=== PATIENT | female | born 1960 | race Two or more races ===

== ENCOUNTER 2017-07-09 11:54 | Emergency (ER) | payer MEDICAID ==
[~2017-07-09] VITALS: Ht 157.5 cm; Wt 90.0 kg
[2017-07-09] MEDS ORDERED: LEVO25TA7 PO (11:58)
[2017-07-09] MEDS ORDERED: FAMOTIDINE 20MG/2ML VIAL IV STA (15:02)
[2017-07-09] MEDS ORDERED: MAGNESIUM/ALUMINUM HYDROXIDE/SIMETHICONE 30ML UDC PO STA (15:02)
[2017-07-09] MEDS ORDERED: KETOROLAC 30MG/ML VIAL IV STA (15:02)
[2017-07-09] MEDS ORDERED: SODIUM CHLORIDE 0.9% 1,000 ML IV ONE (15:02)
[2017-07-09] MEDS ORDERED: ONDANSETRON HCL 4MG/2ML VIAL IV STA (15:02)
[2017-07-09 15:49] LABS: PROTHROMBIN TIME 10.5 sec (9.4-11.6)
[2017-07-09 15:54] LABS: CARBON DIOXIDE 30 mEq/L (21-32); CHLORIDE 103 mEq/L (98-107)
[2017-07-09 15:57] LABS: BASOPHILS % 0.2 % (0.0-2.0); EOSINOPHILS % 0.2 % (0.0-5.0); HEMATOCRIT. 42.8 % (36.0-48.0); HEMOGLOBIN. 14.2 g/dL (12.0-16.0); LYMPHOCYTES % 20.4 % (20.0-50.0); MEAN CORPUSCULAR HEMOGLOBIN 28.5 pg (28.0-32.0); MEAN PLATELET VOLUME 9.1 fl (7.4-10.4); MONOCYTES % 5.1 % (2.0-8.0); NEUTROPHILS % 74.1 % (40.0-76.0); PLATELET 253 x1000/uL (130-400); RED BLOOD CELL COUNT 4.97 mill/uL (4.2-5.4); RED CELL DISTRIBUTION WIDTH 13.9 % (11.6-14.6)
[2017-07-09] MEDS ORDERED: ONDANSETRON 4MG ODT PO ONE (16:15)
[2017-07-09] MEDS ORDERED: FAMOTIDINE 20MG TABLET PO ONE (16:15)
[2017-07-09 16:40] LABS: CLARITY URINE CLEAR (CLEAR); COLOR URINE YELLOW (YELLOW); KETONES URINE TRACE (NEGATIVE); LEUKOCYTE ESTERASE URINE 1+ (NEGATIVE); NITRITE URINE NEGATIVE (NEGATIVE); OCCULT BLOOD URINE NEGATIVE (NEGATIVE); PH URINE 6.5 (4.5-8.0); PROTEIN URINE NEGATIVE (NEGATIVE); SPECIFIC GRAVITY URINE 1.016 (1.005-1.030); UROBILINOGEN URINE 0.2 E.U./dL (0.2-1.0)
[2017-07-09 18:02] VITALS: BP 119/73
== END 2017-07-09 18:06 | disposition home or self-care (01) ==
LOC: EDSEX 12:00 → ER 12:00
DX: R10.13 Epigastric pain (principal); N30.90 Cystitis, unspecified without hematuria; E03.9 Hypothyroidism, unspecified; Z90.49 Acquired absence of other specified parts of digestive tract
CPT/HCPCS: 36415; 80053; 81001; 83690; 85025; 85610; 99284; Q0162; Z7610; J7030